=== PATIENT | male | born 1970 | race Caucasian/White ===

== ENCOUNTER 2019-09-23 08:13 | Outpatient (CLI) | payer OTHER, SELFPAY ==
--- NOTE | ~2019-09-23 | CT_ITS ---
EXAMINATION: CT sinus wo con DATE: 09/23/2019 08:31 INDICATION: Chronic sinus congestion TECHNIQUE: Computed tomography (CT) of the paranasal sinuses was performed without intravenous contra st. The dose-length product (DLP) was 288.76 mGy-cm. Iterative reconstruction was used. COMPARISON: None FINDINGS: There is normal development and pneumatization of the paranasal sinuses. Mild mucosal thick ening is present in the anterior aspect of the left sphenoid sinus. There is a polyp or mucous retent ion cyst in the inferior aspect of the right maxillary sinus. The frontal, sphenoid, ethmoid, and max illary sinuses are otherwise clear. The bilateral ostiomeatal complexes are patent. Visualized soft t issues are unremarkable. IMPRESSION: 1. Mild sinus disease of the left sphenoid and right maxillary sinuses. Reviewed, dictated and finalized at location B.
== END 2019-09-23 08:14 | disposition home or self-care (01) ==
LOC: ANHIMG 08:18
PROVIDERS: PCP Internal Medicine; Visit Provider Internal Medicine
DX: R09.81 Nasal congestion (principal)
CPT/HCPCS: 70486

== ENCOUNTER 2019-09-29 10:33 | Outpatient (CLI) | payer OTHER, SELFPAY ==
--- NOTE | 2019-09-29 10:52 | EST_ITS ---
Patient Info Name: Laurent Marquez Age: 49 years : 1970 Gender: Male Ht: 67 in Wt: 192 lbs BSA: 2.05 m2 Exam Date: 09/29/2019 11:23 AM Exam Location: [facility] Stress Patient Status: Outpatient Admit Date: 09/29/2019 Staff Ordering Physician: Cj Alejandra MD Attending Provider: Cj Alejandra MD Exercise Technologist: Eli Alonso RDCS Exercise Physician: Shaw Whyte DO Exam Type: CA stress test treadmill Study Info Indications R07.9 - Chest pain, unspecified A treadmill exercise stress test was performed. Summary 1. 1. Negative Moy exercise stress test for ischemic ST changes by ECG criteria. 2. 2. Good functional capacity, achieving 12 METs of workload. 3. 3. Appropriate HR response to exercise. 4. 4. Appropriate HR recovery at 1 minute post exercise. 5. 5. No imaging with stress testing. 6. 6. Patient informed of the above results. Protocol: [place] Stress ECG Details Stage: REST Duration (min): 0 min : 47 sec Speed (mph): 0.0 Grade (%): 0 HR (bpm): 55 SBP (mmHg): 134 DBP (mmHg): 75 METS: --- Stage: REST Duration (min): 12 min : 59 sec Speed (mph): 0.0 Grade (%): 0 HR (bpm): 66 SBP (mmHg): 134 DBP (mmHg): 75 METS: --- Stage: STAGE 1 Duration (min): 1 min : 0 sec Speed (mph): 1.7 Grade (%): 10 HR (bpm): 92 SBP (mmHg): 134 DBP (mmHg): 75 METS: --- Stage: STAGE 1 Duration (min): 2 min : 0 sec Speed (mph): 1.7 Grade (%): 10 HR (bpm): 102 SBP (mmHg): 134 DBP (mmHg): 75 METS: --- Stage: STAGE 1 Duration (min): 3 min : 0 sec Speed (mph): 1.7 Grade (%): 10 HR (bpm): 107 SBP (mmHg): 151 DBP (mmHg): 81 METS: --- Stage: STAGE 2 Duration (min): 1 min : 0 sec Speed (mph): 2.5 Grade (%): 12 HR (bpm): 121 SBP (mmHg): 151 DBP (mmHg): 81 METS: --- Stage: STAGE 2 Duration (min): 2 min : 0 sec Speed (mph): 2.5 Grade (%): 12 HR (bpm): 129 SBP (mmHg): 163 DBP (mmHg): 78 METS: --- Stage: STAGE 2 Duration (min): 3 min : 0 sec Speed (mph): 2.5 Grade (%): 12 HR (bpm): 127 SBP (mmHg): 163 DBP (mmHg): 78 METS: --- Stage: STAGE 3 Duration (min): 1 min : 0 sec Speed (mph): 3.4 Grade (%): 14 HR (bpm): 137 SBP (mmHg): 155 DBP (mmHg): 78 METS: --- Stage: STAGE 3 Duration (min): 2 min : 0 sec Speed (mph): 3.4 Grade (%): 14 HR (bpm): 145 SBP (mmHg): 155 DBP (mmHg): 78 METS: --- Stage: STAGE 3 Duration (min): 3 min : 0 sec Speed (mph): 3.4 Grade (%): 14 HR (bpm): 153 SBP (mmHg): 172 DBP (mmHg): 80 METS: --- Stage: STAGE 4 Duration (min): 1 min : 0 sec Speed (mph): 4.2 Grade (%): 16 HR (bpm): 165 SBP (mmHg): 172 DBP (mmHg): 80 METS: --- Stage: STAGE 4 Duration (min): 1 min : 0 sec Speed (mph): 4.2
== END 2019-09-29 10:34 | disposition home or self-care (01) ==
PROVIDERS: PCP Internal Medicine; Visit Provider Internal Medicine
DX: R07.89 Other chest pain (principal)
CPT/HCPCS: 93017

== ENCOUNTER 2019-10-15 07:46 | Outpatient (CLI) | payer OTHER, SELFPAY | END 2019-10-15 07:47 | disposition home or self-care (01) | LOC: ANHAUDIO 07:48 | PROVIDERS: PCP Internal Medicine; Visit Provider Otolaryngology | DX: H91.91 Unspecified hearing loss, right ear (principal); H93.11 Tinnitus, right ear; R42 Dizziness and giddiness | CPT/HCPCS: 92557; 92567 ==

== ENCOUNTER 2019-11-11 06:11 | Emergency (ER) | payer OTHER, SELFPAY ==
--- NOTE | ~2019-11-11 | XR_ITS ---
XR lumbar spine 2-3V 11/11/2019 07:45 Indication: Back pain Procedure: 3 views lumbar spine Comparison: No prior studies for comparison. Findings: There is disc narrowing at L4-5 and L5-S1. No acute fracture or traumatic malalignment. No evidence for spondylolisthesis. Sacral foramen are symmetric. Pedicles intact. Impression: 1: No acute abnormality of the lumbar spine. Reviewed, dictated and finalized at location B. Impression: 1: No acute abnormality of the lumbar spine.
[2019-11-11 06:14] VITALS: BP 135/88; PULSE 69; RESP 18; TEMP 35.8; O2SAT 100
--- NOTE | 2019-11-11 07:06 | PC.NURSE ---
Report to anant jasso RN
--- NOTE | 2019-11-11 07:12 | PC.NURSE ---
ASSUMED CARE FROM TREVA NORRIS AT THIS TIME, PT RESTING, CALL LIGHT AT BEDSIDE, LUCI JARA IN ROOM ASSESSING PT.
--- NOTE | 2019-11-11 07:17 | ED.BACK ---
HPI - Back Pain/Injury General Chief Complaint: Back Pain/Injury Stated Complaint: lower back pain Time Seen by Provider: 11/11/19 06:58 Source: patient Mode of arrival: ambulatory Limitations: no limitations History of Present Illness HPI Narrative: This patient is a 49 year old male who presents for evaluation of lower back pain. PAtient reports his pain started while working out yesterday. He was performing an exercise in which he was performing squats and catching a weighted ball. His back pain continued to progress the more he worked out. His pain is located across his low back. He denies leg weakness , numbness or tingling. His pain is worse with trying to change positions. He took tylenol for his pain yesterday , and he made an appointment with his chiropractor yesterday. He states his chiropractor reported that his back was too tight to be adjusted. He has not taken anything for pain. He states he was having difficulty getting out of bed today. MD elicited complaint: back pain Related Data Allergies Allergy/AdvReac Type Severity Reaction Status Date / Time No Known Allergies Allergy Verified 11/11/19 06:12 Review of Systems Review of Systems: All systems reviewed & are unremarkable except as noted in HPI and below Constitutional: Constitutional: Denies chills and Denies fever(s) Gastrointestinal: Gastrointestinal: Denies abdominal pain, Denies diarrhea, Denies nausea and Denies vomiting Genitourinary: Genitourinary: Denies hematuria, Denies dysuria and Denies urinary frequency Musculoskeletal: Musculoskeletal: Reports back pain Neurologic: Denies focal weakness and Denies numbness PMFSH Past Medical History Medical History (Updated 11/11/19 @ 08:56 by Donna Ramirez MD) Essential hypertension Recurrent major depressive disorder Surgical History Surgical History (Updated 11/11/19 @ 07:19 by Donna Ramirez MD) H/O left knee surgery Social History Social History (Updated 11/11/19 @ 07:19 by Donna Ramirez MD) Smoking status: Never smoker Gender identity (if verbalized by the patient): Male Exam Const: General: alert Orientation/consciousness: patient oriented x3 HENMT: Head: normocephalic and atraumatic Face and sinus: face symmetric Resp: Effort & Inspection: normal respiratory effort GI: GI Palp: Yes Soft to palpation, No Firmness to palpation present (GI), No Tenderness to palpation present (GI), No Guarding due to palpation present (GI) and No Rigid due to palpation Auscultation: normal bowel sounds Back/Spine/Pelvis: Back: no CVA tenderness Skin: General skin exam: normal color Rashes: no rashes Neuro: General: patient oriented x3 and moves all extremities Extrem: General: normal to inspection and no pedal edema Psych: Mental Status: mental status grossly normal Affect: normal affect Course Reevaluation(s) Reevaluation #1: Patient is walking with steady gait and he appears more comfortable. I discussed discharge plan Date: 11/11/19 Time: 08:55 Vital Signs Vital signs: Vital Signs Temperature 96.4 F L 11/11/19 06:14 Pulse Rate 69 11/11/19 06:14 Respiratory Rate 18 11/11/19 06:14 Blood Pressure 135/88 11/11/19 06:14 Pulse Oximetry 100 11/11/19 06:14 Temperature 96.4 F L 11/11/19 06:14 Pulse Rate 68 11/11/19 09:18 Respiratory Rate 16 11/11/19 09:18 Blood Pressure 138/75 11/11/19 09:18 Pulse Oximetry 100 11/11/19 09:18 MDM - Back Pain/Injury Imaging Data Radiologist's impression: ITS Impressions Lumbar Spine X-Ray 11/11/19 08:39 Impression: 1: No acute abnormality of the lumbar spine. Discharge Plan Discharge Clinical Impression: Acute low back pain Qualifiers: Back pain laterality: unspecified Sciatica presence: without sciatica Qualified Code(s): M54.5 - Low back pain Patient Disposition: Home, Self-Care Condition: Stable Instructions: Antibiotic Form, Acute Low
[2019-11-11] MEDS: KETOROLAC (*BKC) 60 MG/2 ML VIAL IM (07:24)
[2019-11-11] MEDS: diazePAM 5 MG TABLET PO (07:24)
[2019-11-11 08:16] VITALS: BP 119/75; PULSE 65; RESP 16; O2SAT 100
[2019-11-11 09:18] VITALS: BP 138/75; PULSE 68; RESP 16; O2SAT 100
== END 2019-11-11 09:19 | disposition home or self-care (01) ==
PROVIDERS: Emergency Provider General Practice; PCP Internal Medicine
DX: M54.5 Low back pain (principal); I10 Essential (primary) hypertension; F32.9 Major depressive disorder, single episode, unspecified
CPT/HCPCS: 72100; 96372; 99284; A9270; J1170; J1885

== ENCOUNTER → 2020-01-12 08:18 | Outpatient (CLI) | payer OTHER, SELFPAY ==
--- NOTE | ~2020-01-12 | CT_ITS ---
EXAMINATION: CT abdomen w con DATE: 01/12/2020 08:51 INDICATION: Epigastric abdominal pain TECHNIQUE: Computed tomography (CT) of the abdomen was performed with 100 cc Omnipaque 350 intravenou s contrast. Automated exposure control and iterative reconstruction technique were employed. Exam dos e: 471.32 mGy-cm total exam DLP. COMPARISON: 07/03/2017 CT abdomen FINDINGS: The lung bases are clear. Normal heart size. No pericardial or pleural effusion. The liver, gallbladder, bile ducts, spleen, pancreas, pancreatic duct, and adrenal glands and kidneys appear normal. Normal caliber of the abdominal aorta. No intraperitoneal or retroperitoneal mass les ion or adenopathy or ascites. Normal appendix. There is circumferential thickening of the wall of the gastric antrum; consider endoscopic correlatio n or upper gastrointestinal series. Otherwise no bowel obstruction, bowel wall thickening, pneumatosis or intraperitoneal free air is det ected. Included skeletal structures are unremarkable. IMPRESSION: Circumferential thickening of the gastric antrum; consider endoscopic correlation or upp er gastrointestinal series Reviewed, dictated and finalized at Location A. Reviewed, dictated and finalized at location B. CAL TECHNICIAN ASSISTANT IMPRESSION: Circumferential thickening of the gastric antrum; consider endosco pic correlation or upper gastrointestinal series
[2020-01-12 08:42] LABS: Estimated Glomerular Filt Rate > 60
== END ==
PROVIDERS: PCP Internal Medicine; Visit Provider Internal Medicine
DX: R10.9 Unspecified abdominal pain (principal)
CPT/HCPCS: 74160; Q9967

== ENCOUNTER 2020-01-14 11:04 | Outpatient (CLI) | payer OTHER, SELFPAY ==
[2020-01-14 11:39] LABS: Basophils Percent Auto 0.3 % (0.2-1.2); Eosinophils Absolute Auto 0.1 K/mm3 (0-0.3); Eosinophils Percent Auto 1.4 % (0-4.4); Hematocrit 44.8 % (42.0-52.0); Hemoglobin 15.7 g/dL (14.0-18.0); Immature Granulocyte Absolute 0.02 K/mm3 (0.00-0.031); Immature Granulocyte Percent A 0.3 % (0-0.5); Lymphocytes Absolute Auto 2.04 K/mm3 (0.9-3.2); Lymphocytes Percent Auto 30.9 % (18.3-44.2); Mean Corpuscular Hemoglobin 30.6 pg (26-34); Mean Corpuscular Volume 87.3 fl (80-100); Mean Platelet Volume 9.8 fl (7.4-10.4); Monocytes Absolute Auto 0.6 K/mm3 (0.1-0.6); Monocytes Percent Auto 9.5 % (2.6-8.5); Neutrophils Absolute Auto 3.8 K/mm3 (1.3-6.7); Neutrophils Percent Auto 57.6 % (45.5-73.1); Platelet Count Result 239 k/mm3 (150-375); Red Blood Count 5.13 M/mm3 (4.6-6.20); Red Cell Distribution Width 11.8 % (11.5-14.5); White Blood Count 6.6 K/mm3 (4.5-10.0)
[2020-01-14 11:50] LABS: Hemoglobin A1C 5.1 % (<5.7)
[2020-01-14 11:52] LABS: Alanine Aminotransferase 34 U/L (4-50); Albumin Level 4.6 g/dL (3.5-5.1); Alkaline Phosphatase 66 U/L (38-126); Anion Gap 8 mmol/L (8-16); Aspartate Amino Transferase 28 U/L (17-59); Bilirubin,Total 0.7 mg/dL (0.2-1.3); Blood Urea Nitrogen 14 mg/dL (9-20); Calcium 9.3 mg/dL (8.4-10.2); Carbon Dioxide 31 mmol/L (22-30); Chloride 101 mmol/L (98-107); Cholesterol 121 mg/dL (0-200); Estimated Glomerular Filt Rate > 60; Glucose 95 mg/dL (75-110); HDL Direct 26 mg/dL; Potassium 4.3 mmol/L (3.4-5.0); Sodium 140 mmol/L (137-145); Triglycerides 195 mg/dL (<150)
[2020-01-14 12:03] LABS: LDL Cholesterol Direct 69 mg/dL
[2020-01-14 12:22] LABS: Prostate Specific Antigen 0.5 ng/mL (< OR = 4.0)
== END 2020-01-14 11:05 | disposition home or self-care (01) ==
LOC: ANHLAB 11:06
PROVIDERS: PCP Internal Medicine; Visit Provider Internal Medicine
DX: F33.41 Major depressive disorder, recurrent, in partial remission (principal); I10 Essential (primary) hypertension; Z12.5 Encounter for screening for malignant neoplasm of prostate; Z79.899 Other long term (current) drug therapy
CPT/HCPCS: 36415; 80053; 80061; 83036; 84153; 84443; 85025; G0103

== ENCOUNTER 2020-10-05 09:23 | Outpatient (CLI) | payer OTHER, SELFPAY ==
--- NOTE | 2020-10-05 09:55 | ECG_ITS ---
Measurements Intervals [place] Rate: 46 P: 7 CO: 166 QRS: 41 QRSD: 107 T: 43 QT: 436 QTc: 382 Interpretive Statements SINUS BRADYCARDIA BASELINE ARTIFACT- I, II, III, AVR ABNORMAL ECG Electronically Signed On 10-05-2020 10:15:16 CDT by Shaw Whyte D.O.
== END 2020-10-05 09:24 | disposition home or self-care (01) ==
LOC: ANHCARD 09:27
PROVIDERS: PCP Internal Medicine; Visit Provider Internal Medicine
DX: I10 Essential (primary) hypertension (principal); R94.31 Abnormal electrocardiogram [ECG] [EKG]
CPT/HCPCS: 93005

== ENCOUNTER 2021-10-19 08:08 | Outpatient (CLI) | payer OTHER, SELFPAY ==
[2021-10-19 08:47] LABS: Alanine Aminotransferase 65 U/L (6-50); Albumin Level 4.6 g/dL (3.5-5.1); Alkaline Phosphatase 66 U/L (38-126); Anion Gap 8 mmol/L (8-16); Aspartate Amino Transferase 48 U/L (17-59); Bilirubin,Total 0.8 mg/dL (0.2-1.3); Blood Urea Nitrogen 19 mg/dL (9-20); Carbon Dioxide 32 mmol/L (22-30); Chloride 99 mmol/L (98-107); Estimated Glomerular Filt Rate > 60; Glucose 103 mg/dL (65-110); Potassium 4.6 mmol/L (3.4-5.0); Sodium 139 mmol/L (137-145)
== END 2021-10-19 08:09 | disposition home or self-care (01) ==
PROVIDERS: PCP Internal Medicine; Visit Provider Internal Medicine
DX: R79.89 Other specified abnormal findings of blood chemistry (principal)
CPT/HCPCS: 36415; 80053

== ENCOUNTER 2021-12-19 07:51 | Outpatient (CLI) | payer OTHER, SELFPAY ==
[2021-12-23 11:52] LABS: Testosterone Total 472 ng/dL (250-1100)
== END 2021-12-19 07:52 | disposition home or self-care (01) ==
LOC: ANHLAB 07:52
PROVIDERS: PCP Internal Medicine; Visit Provider Nurse Practitioner
DX: R53.83 Other fatigue (principal); R68.82 Decreased libido
CPT/HCPCS: 36415; 84403

== ENCOUNTER 2022-02-01 09:40 | Outpatient (CLI) | payer OTHER, SELFPAY ==
--- NOTE | 2022-02-01 11:00 | NEURO_ITS ---
Impression: # History of elbow pain in left arm and numbness in bilateral 4th and 5th digits. # Normal Nerve Conduction Study. # Normal needle/EMG exam. # Clinical correlation recommended. Motor Nerve Conduction Upper Extremities Median Nerve Conduction Velocity (m/sec) Terminal Latency (msec) Response Voltage(mV) Elbow-Wrist Wrist Elbow Wrist Right 59 3.1 6 8 Left 57 2.7 4 6 Ulnar Nerve Conduction Velocity (m/sec) Terminal Latency (msec) Response Voltage(mV) Above Elbow Below Elbow Wrist Above Elbow Below Elbow Wrist Right 55 61 2.7 6 7 7 Left 51 58 2.2 6 6 7 F-Wave Latency Median (ms) Ulnar (ms) Right 28.0 28.8 Left 28.4 28.6 Sensory Nerve Conduction Upper Extremities Median Nerve Stimulation Terminal Latency (msec) Wrist/Digit Response Voltage (uV) Wrist Right 3.4/3.7 23/24 Left 2.9/3.2 42/29 Ulnar Nerve Stimulation Terminal Latency (msec) Wrist/Digit Response Voltage (uV) Wrist Right 3.1 39 Left 2.9 47 Radial Nerve Terminal Latency (msec) Response Voltage(mV) Right 2.7 28 Left 2.2 34 Left Right Muscles Examined Fibrillation Fasciculation Scarcity Voltage Duration Left Right Left Right Left Right Left Right Left Right Deltoid Biceps X X Brachioradialis Triceps X X Pronator Teres X X Ext Indicis X X Ext Digitorum X X Abd Poll Brev X X 1st Dorsal Interosseus Paraspinals MTDD
== END 2022-02-01 09:41 | disposition home or self-care (01) ==
LOC: ANHNEURO 09:42
PROVIDERS: PCP Internal Medicine; Visit Provider Nurse Practitioner
DX: R20.0 Anesthesia of skin (principal)
CPT/HCPCS: 95886; 95911

== ENCOUNTER 2022-04-14 10:28 | Outpatient (CLI) | payer OTHER, SELFPAY ==
[2022-04-16 23:40] LABS: PCP NEGATIVE ng/mL (<25)
[2022-04-18 11:27] LABS: Amphetamines Negative; Barbiturates Negative; Benzodiazepines Negative; Cocaine Metabolites Negative; Marijuana Metabolites Negative
== END 2022-04-14 10:29 | disposition home or self-care (01) ==
LOC: ANHLAB 10:29
PROVIDERS: PCP Internal Medicine; Visit Provider Internal Medicine
DX: Z79.899 Other long term (current) drug therapy (principal)
CPT/HCPCS: 80307

== ENCOUNTER 2022-06-08 11:17 | Outpatient (CLI) | payer OTHER, SELFPAY ==
[2022-06-08 12:23] LABS: Alanine Aminotransferase 36 U/L (6-50); Albumin Level 4.6 g/dL (3.5-5.1); Alkaline Phosphatase 72 U/L (38-126); Anion Gap 9 mmol/L (8-16); Aspartate Amino Transferase 32 U/L (17-59); Bilirubin,Total 0.8 mg/dL (0.2-1.3); Blood Urea Nitrogen 14 mg/dL (9-20); Calcium 8.9 mg/dL (8.4-10.2); Carbon Dioxide 30 mmol/L (22-30); Chloride 98 mmol/L (98-107); Cholesterol 142 mg/dL (0-200); Estimated Glomerular Filt Rate > 60; Glucose 98 mg/dL (65-110); HDL Direct 36 mg/dL; Potassium 3.9 mmol/L (3.4-5.0); Sodium 137 mmol/L (137-145); Triglycerides 77 mg/dL (<150)
[2022-06-08 12:35] LABS: LDL Cholesterol Direct 88 mg/dL
[2022-06-13 14:40] LABS: Vitamin D 1,25 (OH)2 Total 24 pg/mL (18-72); Vitamin D2 1,25 (OH)2 <8 pg/mL; Vitamin D3 1,25 (OH)2 24 pg/mL
== END 2022-06-08 11:18 | disposition home or self-care (01) ==
LOC: ANHLAB 11:19
PROVIDERS: PCP Internal Medicine; Visit Provider Internal Medicine
DX: E55.9 Vitamin D deficiency, unspecified (principal); R79.89 Other specified abnormal findings of blood chemistry; I10 Essential (primary) hypertension; E78.5 Hyperlipidemia, unspecified
CPT/HCPCS: 36415; 80053; 80061; 82652

== ENCOUNTER 2022-10-15 16:52 | Emergency (ER) | payer OTHER, SELFPAY ==
[2022-10-15 17:02] VITALS: BP 158/94; PULSE 94; RESP 16; O2SAT 99
--- NOTE | 2022-10-15 17:04 | ECG_ITS ---
Measurements Intervals [place] Rate: 87 P: 46 CA: 179 QRS: 19 QRSD: 110 T: 42 QT: 356 QTc: 430 Interpretive Statements SINUS RHYTHM WITHIN NORMAL LIMITS COMPARED TO ECG 10/05/2020 10:09:29 NO SIGNIFICANT CHANGE Electronically Signed On 10-16-2022 7:30:57 CDT by Elder Murphy M.D.
[2022-10-15 17:14] LABS: Basophils Percent Auto 0.5 % (0.2-1.2); Eosinophils Absolute Auto 0.1 K/mm3 (0-0.3); Eosinophils Percent Auto 1.3 % (0-4.4); Hematocrit 43.2 % (42.0-52.0); Hemoglobin 15.1 g/dL (14.0-18.0); Immature Granulocyte Absolute 0.04 K/mm3 (0.00-0.031); Immature Granulocyte Percent A 0.5 % (0-0.5); Lymphocytes Absolute Auto 2.17 K/mm3 (0.9-3.2); Lymphocytes Percent Auto 24.9 % (18.3-44.2); Mean Corpuscular Hemoglobin 30.3 pg (26-34); Mean Corpuscular Volume 86.7 fl (80-100); Mean Platelet Volume 9.8 fl (7.4-10.4); Monocytes Absolute Auto 0.8 K/mm3 (0.1-0.6); Monocytes Percent Auto 9.1 % (2.6-8.5); Neutrophils Absolute Auto 5.6 K/mm3 (1.3-6.7); Neutrophils Percent Auto 63.7 % (45.5-73.1); Platelet Count Result 248 k/mm3 (150-375); Red Blood Count 4.98 M/mm3 (4.6-6.20); Red Cell Distribution Width 12.1 % (11.5-14.5); White Blood Count 8.7 K/mm3 (4.5-10.0)
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
[2022-10-15 17:23] LABS: Alanine Aminotransferase 33 U/L (6-50); Albumin Level 4.5 g/dL (3.5-5.1); Alkaline Phosphatase 63 U/L (38-126); Anion Gap 8 mmol/L (8-16); Aspartate Amino Transferase 31 U/L (17-59); Bilirubin,Total 0.8 mg/dL (0.2-1.3); Blood Urea Nitrogen 17 mg/dL (9-20); Calcium 9.5 mg/dL (8.4-10.2); Carbon Dioxide 26 mmol/L (22-30); Chloride 103 mmol/L (98-107); Estimated CRCL calculation 73 ml/min; Estimated Glomerular Filt Rate > 60; Glucose 102 mg/dL (65-110); Potassium 3.6 mmol/L (3.4-5.0); Sodium 137 mmol/L (137-145)
[2022-10-15] MEDS: FAMOTIDINE 20 MG/2 ML VIAL IV PUSH (17:33)
[2022-10-15] MEDS: ONDANSETRON INJ 4 MG/2 ML VIAL IV PUSH (17:33)
[2022-10-15] MEDS: LACTATED RINGERS 1,000 ML 999 ML IV CONT (17:34)
[2022-10-15 18:17] LABS: Appearance Urine Clear (Clear); Bilirubin Urine Negative (Negative); Blood Urine Negative (Negative); Color Urine Yellow (Yellow); Glucose Urine UA Negative (Negative); Ketones Urine Negative (Negative); Leukocyte Esterase Ur Negative LEU/UL (Negative); Nitrate Urine Negative (Negative); Protein Urine Negative (Negative); Specific Grav Ur 1.009 (1.001-1.035); Urobilinogen Urine 0.2 mg/dL (<2.0); pH Urine 7.5 (5.0-9.0)
[2022-10-15 18:23] LABS: Troponin I < 0.012 ng/mL (0.000-0.034)
[2022-10-15 18:25] LABS: Add Urine Microscopic? NO
[2022-10-15 19:40] VITALS: BP 144/64; PULSE 80; RESP 14; O2SAT 98
== END 2022-10-15 19:25 | disposition home or self-care (01) ==
PROVIDERS: Student in an Organized Health Care Education/Training Program; Emergency Provider Nurse Practitioner; PCP Internal Medicine
DX: T67.1XXA Heat syncope, initial encounter (principal); R42 Dizziness and giddiness; I10 Essential (primary) hypertension; H81.09 Meniere's disease, unspecified ear; K21.9 Gastro-esophageal reflux disease without esophagitis; E66.3 Overweight; Z68.30 Body mass index [BMI] 30.0-30.9, adult; G47.9 Sleep disorder, unspecified; F41.9 Anxiety disorder, unspecified; X30.XXXA Exposure to excessive natural heat, initial encounter
CPT/HCPCS: 36415; 80053; 81003; 84484; 85025; 93005; 96361; 96374; 96375; 99284; J2405; J7120

== ENCOUNTER 2023-02-15 08:02 | Day surgery (SDC) | payer OTHER, SELFPAY ==
--- NOTE | 2023-02-14 07:55 | WPDANESEPPF ---
Anes - Initial Pre Proc Eval Procedure: Operation Date: 02/15/23 10:00 Proposed Procedures p Screening Colonoscopy - Ilya Hendrix MD Date/Time: 02/14/23 07:55 Surgeon: Ilya Hendrix MD Pre Op Diagnosis: Neoplasm Screening Patient Data Age: 52 Gender: M Height: 1.7 m Weight: 90 kg Allergies Allergy/AdvReac Type Severity Reaction Status Date / Time No Known Allergies Allergy Verified 01/26/23 10:33 Home Medications Medication Instructions Recorded Confirmed Type acyclovir 400 mg tablet See Rx Instructions .Route 12/07/22 01/26/23 Rx .COMPLEX #90 tabs sertraline 25 mg tablet (Zoloft) 25 mg PO DAILY #90 tabs 12/19/22 01/26/23 Rx triamterene 37.5 1 cap PO DAILY #90 caps 12/19/22 01/26/23 Rx mg-hydrochlorothiazide 25 mg capsule zolpidem 10 mg tablet 10 mg PO QHS PRN insomnia #30 tabs 01/09/23 01/26/23 Rx omeprazole 40 mg capsule,delayed See Rx Instructions .Route 02/05/23 Rx release .COMPLEX #90 caps Results Review: All pre-operative results and documents have been reviewed as part of the pre-operative evaluation. [facility] Past Medical History Medical History Anxiety Essential hypertension GERD (gastroesophageal reflux disease) Meniere disease Overweight (BMI 25.0-29.9) Recurrent major depressive disorder Sleep disorder Tinnitus of right ear Surgical History Surgical History H/O left knee surgery Family History Family History Father Depression Hypertension Family history of coronary artery disease Mother Depression Hypertension Social History Social History Smoking status: Never smoker Alcohol intake: current Drinks per week: 2 Alcohol use details: 2 Substance use: never Substance use type: does not use Lack of Transportation: No Lack of Food: Never True Current Housing: I Have Housing Concerned About Future Housing: No Difficulty Paying Gas/Electric Bills: No Difficulty Paying for Meds: No Currently Unemployed: No Education: Associate Degree Difficulty w/ Childcare or Family Care: No Gender identity (if verbalized by the patient): Male Spiritual care concerns: No Anes - Eval Final PreProcedure Day of Procedure 02/14/23 07:55 Patient weight: obese Heart: regular rate and rhythm Lungs: clear to auscultation Airway: Mallampati scale class II Neurological: alert and oriented Last oral intake: >/= 8 hours ASA classification: III Emergent: no Anesthetic plan: proceed Anesthesia type and monitoring: general GIVS and standard monitoring Results Review: All pre-operative results and documents have been reviewed as part of the pre-operative evaluation. Informed Consent: The patient's anesthetic plan and its attendant risks and benefits were discussed with the patient/family/POA. Questions were solicited and answers provided to the satisfaction of the patient/family/POA.
--- NOTE | 2023-02-14 14:32 | PM.HPGS ---
History of Present Illness History of Present Illness Consent: Risks, benefits, and alternatives have been discussed and questions answered. Patient agrees to proceed with procedure. Chief complaint: Neoplasm Screening Narrative: Laurent Marquez III is a 52 year old male Referred for colon cancer screening. Review of Systems Review of Systems: All systems reviewed & are unremarkable except as noted in HPI and below PMFSH Past Medical History Medical History Anxiety Essential hypertension GERD (gastroesophageal reflux disease) Meniere disease Overweight (BMI 25.0-29.9) Recurrent major depressive disorder Sleep disorder Tinnitus of right ear Surgical History Surgical History H/O left knee surgery Family History Family History Father Depression Hypertension Family history of coronary artery disease Mother Depression Hypertension Social History Social History Smoking status: Never smoker Alcohol intake: current Drinks per week: 2 Alcohol use details: 2 Substance use: never Substance use type: does not use Lack of Transportation: No Lack of Food: Never True Current Housing: I Have Housing Concerned About Future Housing: No Difficulty Paying Gas/Electric Bills: No Difficulty Paying for Meds: No Currently Unemployed: No Education: Associate Degree Difficulty w/ Childcare or Family Care: No Gender identity (if verbalized by the patient): Male Spiritual care concerns: No Meds Home Medications and Allergies Home Medications Medication Instructions Recorded Confirmed Type acyclovir 400 mg tablet See Rx Instructions .Route 12/07/22 02/15/23 Rx .COMPLEX #90 tabs sertraline 25 mg tablet (Zoloft) 25 mg PO DAILY #90 tabs 12/19/22 02/15/23 Rx triamterene 37.5 1 cap PO DAILY #90 caps 12/19/22 02/15/23 Rx mg-hydrochlorothiazide 25 mg capsule zolpidem 10 mg tablet 10 mg PO QHS PRN insomnia #30 tabs 01/09/23 02/15/23 Rx omeprazole 40 mg capsule,delayed See Rx Instructions .Route 02/05/23 02/15/23 Rx release .COMPLEX #90 caps Allergies Allergy/AdvReac Type Severity Reaction Status Date / Time No Known Allergies Allergy Verified 02/15/23 08:25 Exam Const: General: alert Orientation/consciousness: patient oriented x3 Resp: Auscultation: clear to auscultation bilaterally Cardio: Rhythm: regular rhythm GI: GI Palp: Yes Soft to palpation and No Tenderness to palpation present (GI) Neuro: General: patient oriented x3 Assessment and Plan Assessment and plan (1) Screening for colon cancer: Code(s): Z12.11 - Encounter for screening for malignant neoplasm of colon Status: Acute Assessment and Plan: Colonoscopy with possible biopsy or polypectomy or cautery or injection of substances.
[2023-02-15 08:18] VITALS: BP 146/97; PULSE 73; RESP 16; TEMP 36.6; O2SAT 99
[2023-02-15 08:23] VITALS: BP 146/97; PULSE 73; RESP 16; O2SAT 99
[2023-02-15] MEDS: LACTATED RINGERS 1,000 ML 150 ML IV CONT (08:35)
--- NOTE | 2023-02-15 09:34 | WPDANESEPPF ---
Anes - Initial Pre Proc Eval Procedure: Operation Date: 02/15/23 10:00 Proposed Procedures p Screening Colonoscopy - Ilya Hendrix MD Date/Time: 02/15/23 09:34 Surgeon: Ilya Hendrix MD Pre Op Diagnosis: Neoplasm Screening Patient Data Age: 52 Gender: M Height: 1.7 m Weight: 88.1 kg Last Vital Signs Temp 36.6 C 02/15/23 08:18 Pulse 73 02/15/23 08:23 Resp 16 02/15/23 08:23 BP 146/97 H 02/15/23 08:23 Pulse Ox 99 02/15/23 08:23 O2 Del Method Room Air 02/15/23 08:23 Allergies Allergy/AdvReac Type Severity Reaction Status Date / Time No Known Allergies Allergy Verified 02/15/23 08:25 Home Medications Medication Instructions Recorded Confirmed Type acyclovir 400 mg tablet See Rx Instructions .Route 12/07/22 02/15/23 Rx .COMPLEX #90 tabs sertraline 25 mg tablet (Zoloft) 25 mg PO DAILY #90 tabs 12/19/22 02/15/23 Rx triamterene 37.5 1 cap PO DAILY #90 caps 12/19/22 02/15/23 Rx mg-hydrochlorothiazide 25 mg capsule zolpidem 10 mg tablet 10 mg PO QHS PRN insomnia #30 tabs 01/09/23 02/15/23 Rx omeprazole 40 mg capsule,delayed See Rx Instructions .Route 02/05/23 02/15/23 Rx release .COMPLEX #90 caps Patient hx anesthesia problems: none Family hx anesthesia problems: none Results Review: All pre-operative results and documents have been reviewed as part of the pre-operative evaluation. [facility], [facility] Past Medical History Medical History Anxiety Essential hypertension GERD (gastroesophageal reflux disease) Meniere disease Overweight (BMI 25.0-29.9) Recurrent major depressive disorder Sleep disorder Tinnitus of right ear Surgical History Surgical History H/O left knee surgery Family History Family History Father Depression Hypertension Family history of coronary artery disease Mother Depression Hypertension Social History Social History Smoking status: Never smoker Alcohol intake: current Drinks per week: 2 Alcohol use details: 2 Substance use: never Substance use type: does not use Lack of Transportation: No Lack of Food: Never True Current Housing: I Have Housing Concerned About Future Housing: No Difficulty Paying Gas/Electric Bills: No Difficulty Paying for Meds: No Currently Unemployed: No Education: Associate Degree Difficulty w/ Childcare or Family Care: No Gender identity (if verbalized by the patient): Male Spiritual care concerns: No Anes - Eval Final PreProcedure Day of Procedure 02/15/23 09:34 Patient weight: overweight Heart: regular rate and rhythm Lungs: clear to auscultation Airway: Mallampati scale class II Neurological: alert and oriented Last oral intake: >/= 8 hours ASA classification: II Emergent: no Anesthetic plan: proceed Anesthesia type and monitoring: general GIVS and standard monitoring Results Review: All pre-operative results and documents have been reviewed as part of the pre-operative evaluation. Informed Consent: The patient's anesthetic plan and its attendant risks and benefits were discussed with the patient/family/POA. Questions were solicited and answers provided to the satisfaction of the patient/family/POA.
[2023-02-15 09:58] VITALS: BP 122/84; PULSE 77; RESP 16; O2SAT 100
[2023-02-15 10:08] VITALS: BP 130/88; PULSE 63; RESP 18; O2SAT 100
[2023-02-15 10:18] VITALS: BP 141/83; PULSE 59; RESP 18; O2SAT 100
--- NOTE | 2023-02-15 10:21 | WPDANESPN ---
Anes - Prog Note Post-Op Date/Time: 02/15/23 10:21 Cardiovascular status: normal Respiratory status: normal Airway patency: baseline Mental status: baseline Post-Op hydration status: normal Vital Signs: Last Vital Signs Temp 36.6 C 02/15/23 08:18 Pulse 77 02/15/23 09:58 Resp 16 02/15/23 09:58 BP 122/84 02/15/23 09:58 Pulse Ox 100 02/15/23 09:58 O2 Del Method Room Air 02/15/23 09:58 Pain Score (VAS): 0 I/O: Intake & Output 02/14/23 02/15/23 02/15/23 23:59 07:59 15:59 Intake Total 700 Balance 700 Patient Feedback: Patient satisfied with anesthetic care.
== END 2023-02-15 10:32 | disposition home or self-care (01) ==
PROVIDERS: PCP Nurse Practitioner; Visit Provider Internal Medicine Gastroenterology
PROC: 0DJD8ZZ Inspection of Lower Intestinal Tract, Via Natural or Artificial Opening Endoscopic (ICD-10-PCS; CPT 45378; principal; 2023-02-15 10:00)
DX: Z12.11 Encounter for screening for malignant neoplasm of colon (principal); D12.5 Benign neoplasm of sigmoid colon; D12.8 Benign neoplasm of rectum
CPT/HCPCS: 45385; 45380

== ENCOUNTER 2023-02-15 16:59 | Outpatient (NON) | payer OTHER, SELFPAY | END 2023-02-15 17:00 | disposition home or self-care (01) | LOC: ANHLAB 17:01 | PROVIDERS: PCP Nurse Practitioner; Visit Provider Internal Medicine Gastroenterology | DX: Z12.11 Encounter for screening for malignant neoplasm of colon (principal) | CPT/HCPCS: 88305 ==

== ENCOUNTER 2023-12-25 15:50 | Outpatient (CLI) | payer BC, SELFPAY ==
[2023-12-25 16:39] LABS: Alanine Aminotransferase 29 U/L (6-50); Albumin Level 4.5 g/dL (3.5-5.1); Alkaline Phosphatase 77 U/L (38-126); Anion Gap 13 mmol/L (4-12); Aspartate Amino Transferase 26 U/L (17-59); Bilirubin,Total 0.5 mg/dL (0.2-1.3); Blood Urea Nitrogen 12 mg/dL (9-20); Calcium 8.9 mg/dL (8.4-10.2); Carbon Dioxide 26 mmol/L (22-30); Chloride 100 mmol/L (98-107); Cholesterol 140 mg/dL (0-200); Estimated Glomerular Filt Rate > 60; Glucose 113 mg/dL (65-110); HDL Direct 44 mg/dL; Potassium 3.1 mmol/L (3.4-5.0); Sodium 139 mmol/L (137-145); Triglycerides 155 mg/dL (<150)
[2023-12-25 16:50] LABS: LDL Cholesterol Direct 71 mg/dL
[2023-12-25 17:10] LABS: Prostate Specific Antigen 0.7 ng/mL (< OR = 4.0)
== END 2023-12-25 15:51 | disposition home or self-care (01) ==
LOC: ANHLAB 15:53
PROVIDERS: PCP Family Medicine; Visit Provider Family Medicine
DX: Z12.5 Encounter for screening for malignant neoplasm of prostate (principal); E78.5 Hyperlipidemia, unspecified; Z79.899 Other long term (current) drug therapy
CPT/HCPCS: 36415; 80053; 80061; 84153; 84443; G0103

== ENCOUNTER 2024-02-29 15:58 | Outpatient (CLI) | payer BC, SELFPAY ==
[2024-02-29 16:21] LABS: Hemoglobin A1C 5.4 % (<5.7)
[2024-02-29 16:23] LABS: Anion Gap 4 mmol/L (4-12); Blood Urea Nitrogen 18 mg/dL (9-20); Calcium 9.3 mg/dL (8.4-10.2); Carbon Dioxide 29 mmol/L (22-30); Chloride 103 mmol/L (98-107); Estimated Glomerular Filt Rate > 60; Glucose 105 mg/dL (65-110); Potassium 3.9 mmol/L (3.4-5.0); Sodium 136 mmol/L (137-145)
== END 2024-02-29 15:59 | disposition home or self-care (01) ==
LOC: ANHLAB 15:59
PROVIDERS: PCP Family Medicine; Visit Provider Family Medicine
DX: R73.9 Hyperglycemia, unspecified (principal); E87.6 Hypokalemia
CPT/HCPCS: 36415; 80048; 83036